=== PATIENT | female | born 1945 | race Caucasian/White ===

== ENCOUNTER → 2017-04-05 | Outpatient (CLI) | payer OTHER ==
[~2017-04-05] MED LIST: ALEVE220 MG PO; CALCI-CHEW500 MG PO; CELEBREX 200 M200 MG PO; EVISTA; HYDROCODONE-AP1 EAC6 PO; IBUPROFEN200 M1 PO; XANAX 0.5 MG0.5 M1 PO
== END ==
LOC: RAD 05:07
DX: Z12.31 Encounter for screening mammogram for malignant neoplasm of breast (principal)

== ENCOUNTER → 2017-08-04 | Outpatient (CLI) | payer OTHER | LOC: RAD 11:03 | DX: M79.672 Pain in left foot (principal) ==

== ENCOUNTER → 2018-08-17 | Outpatient (CLI) | payer OTHER, BC ==
[~2018-08-17] VITALS: Ht 167.6 cm; Wt 63.5 kg
[~2018-08-17] MED LIST changes: +CELEXA40 MG PO; +XANAX 0.5 MG0.5 MG PO
--- NOTE | ~2018-08-17 | HPC ---
[facility] [place] [address] PAIN MANAGEMENT CONSULTATION Name: MIKE LEON [id number] Admission: 08/17/18 Attend Phys: Sarah Beth Lang MD Discharge: Date of : 47 Report #: [id number] THIS REPORT FOR: //name// CC: Norma Linares MD DATE OF SERVICE: 08/17/2018 FOLLOWUP COMPLAINT: Pain in the low back that goes down into both legs. FOLLOWUP HISTORY: The patient is a 73-year-old female, who has been experiencing pain and discomfort, which has been radiating down into both legs, involves the right side, which is most problematic. She has a history of lumbar radiculopathy. She has undergone epidural steroid injections in the past. She is experiencing pain now in the right leg in the L4-L5 distribution, where pain radiates down the right side of her leg to the anterior portion of her calf and down into her foot. She rates her pain as an 8/10. This is quite problematic. The pain has been worsening over the last 2 years. This pain affects walking, standing, and activities of daily living. She has not had surgery on her back. The patient states that she has talked to other anesthesiologist in the past. They have talked to her about other modes of treatment such as radiofrequency, lesioning of her low back area. She is not sure whether or not that would be a reasonable procedure at this juncture. She has came to the pain clinic with the thought of undergoing an epidural steroid injection. She has brought her MRI with her of her back. PAST MEDICAL HISTORY: The patient has joint disease/arthritis. PAST SURGICAL HISTORY: None. MEDICATIONS: The patient is on hydrocodone 5/325 one p.o. q.4-6 hours p.r.n., ibuprofen 200 mg p.r.n., calcium 500 mg, and Evista 60 mg daily. ALLERGIES: The patient has no known drug allergies. SOCIAL HISTORY: The patient is an news production assistant executive. REVIEW OF SYSTEMS: Generally in good health. She has eye disease/injury, wears glasses. PAIN CLINIC ASSESSMENT: 1. History of osteoarthritis. The patient is not being treated for osteoarthritis. 2. Rheumatoid arthritis. The patient is not being treated for rheumatoid arthritis. [place] [id number] PAIN MANAGEMENT CONSULTATION Name: MIKE LEON Room #: REG [facility]#: [id number] Admission: 08/17/18 Attend Phys: Sarah Beth Lang MD Discharge: Date of : 47 Report #: [id number] 3. Pain intensity is 9/10. 4. Fall risk. The patient has not fallen in the last 3 months. 5. Blood thinner. The patient is not on a blood thinning medication. 6. Hypertension. The patient has not been treated for hypertension. 7. Opioid therapy greater than 6 weeks. The patient does not have any problem with opioid medications. 8. Risk assessment tool, low risk with opioids, 0/3. 9. Functional assessment tool, 39/70. 10. Recreational drug use: The patient denies. 11. Tobacco. The patient has never smoked. 12. Alcohol. The patient drinks alcoholic beverages on occasion. PHYSICAL EXAMINATION: GENERAL: The patient is a well-developed and well-nourished white female. She appears her stated age. She is alert and oriented x 3. Affect is appropriate. Speech is fluent. Height is 5 feet 6 inches, weight is 138 pounds, and BMI is 22.3. VITAL SIGNS: Blood pressure is 148/61, pulse is 67, respiratory rate is 14, and saturation was 100%. HEENT: Normocephalic, atraumatic. Extraocular eye muscles intact. Sclerae nonicteric. Mucous membranes are moist. NECK: Without adenopathy or JVD. LUNGS: Clear to auscultation. HEART: Regular rate. S1, S2. MUSCULOSKELETAL: Upper extremity muscle strength is judged to be 5/5 for the major muscle groups. The patient without significant scoliosis, kyphosis, or lordosis. The patient has pain and discomfort in lower portion of her back with pain radiating down into the right L5-S1 dermatomal distribution. She has some discomfort on the left side as well. LABORATORY DATA: MRI of the lumbar spine dated 05/17/2018 reveals: 1. L2-L3: Disk desiccation and diffuse annular disk bulge. Moderate bilateral facet and ligamentum flavum hypertrophy. Moderate left, bilateral recess and neural foraminal narrowing. Mild right neural foraminal narrowing. 2. L3-L4: Disk desiccation and diffuse annular disk bulge. Mild bilateral facet and ligamentum flavum hypertrophy. No significant stenosis. 3. L4-L5: Mild disk desiccation and diffuse annular disk bulge. Advanced right and moderate left facet arthropathy. Congenitally short pedicles. Moderate spinal canal narrowing with an AP dimension of 10 mm or 7 mm. Moderate bilateral recess narrowing. Mild bilateral neural foraminal narrowing. 4. L5-S1: Minimal diffuse annular disk bulge. Mild bilateral facet arthropathy. Moderate right neural foramen narrowing. IMPRESSION: 1. Lumbar radiculopathy, L4-L5 distribution. 2. Generally in good health. [facility] [address] [place] [address] PAIN MANAGEMENT CONSULTATION Name: MIKE LEON Room #: REG [facility]#: [id number] Admission: 08/17/18 Attend Phys: Sarah Beth Lang MD Discharge: Date of : 47 Report #: [id number] RECOMMENDATIONS: We have discussed treatment options with the patient. Risks and benefits of an epidural steroid injection were discussed. The patient will return to the pain clinic in about 5 days. At that time, she will undergo an epidural steroid injection. She and her are planning on going on vacation. Risks and benefits of epidural steroid injection again have been reviewed and the patient elects to proceed. <ELECTRONICALLY SIGNED> By: Sarah Beth Lang MD 09/03/18 1124 [id number] [id number] Sarah Beth Lang MD /[facility]
[2018-08-17 13:49] VITALS: BP 142/64
== END ==
LOC: PAIN 09:09
DX: M54.5 Low back pain (principal); M79.604 Pain in right leg; M79.605 Pain in left leg; Z79.899 Other long term (current) drug therapy

== ENCOUNTER → 2018-08-22 | Outpatient (CLI) | payer OTHER, BC ==
[~2018-08-22] VITALS: Ht 167.6 cm; Wt 62.8 kg
--- NOTE | ~2018-08-22 | HPC ---
[facility] [place] [address] PAIN MANAGEMENT CONSULTATION Name: MIKE LEON Room #: REG [facility]#: [id number] Admission: 08/22/18 Attend Phys: Sarah Beth Lang MD Discharge: Date of : 47 Report #: [id number] THIS REPORT FOR: //name// CC: Norma Linares MD DATE OF SERVICE: 08/22/2018 PRIMARY CARE PHYSICIAN: Benito Linares MD and SINDY Leal CHIEF COMPLAINT: Back and right leg pain. HISTORY: The patient is a 73-year-old female who has been seen in the pain clinic because of pain and discomfort in the lower portion of her back. She is experiencing pain that radiates down in the L5/L4 distribution on the right side. She has undergone epidural steroid injections in the past and gleaned benefits from these. She returns today for an injection. She does work out on a regular basis. Does have some pain and discomfort in the low back area and down into the low back area, right side greater than the left. She notes some tightening and spasms in the area, particularly on the right. She has returned today for an epidural steroid injection. Epidural steroid injections in the past have gleaned and provided greater than 50% improvement. She would like to proceed with another injection today. ALLERGIES: No known drug allergies. MEDICATIONS: Xanax 0.5 mg daily, Celexa 40 mg, ibuprofen 200 mg, hydrocodone 5/325, calcium 500 mg, and Evista 60 mg. PAIN CLINIC ASSESSMENT/PQRS: 1. Osteoarthritis. The patient has not been treated for osteoarthritis or rheumatoid arthritis. 2. Height 5 feet 6 inches, weight 138 pounds, BMI 22.3. 3. Vital signs: Blood pressure 148/61, pulse 67, respiratory rate 14, room air saturation is 100%. 4. Pain intensity 9/10. 5. Fall risk. The patient has not fallen in the last 3 months. 6. Blood thinner. The patient is not on a blood thinning medication. 7. Hypertension. The patient is not being treated for hypertension, opioid therapy greater than 6 weeks. The patient is not on an opioid regimen greater than 6 weeks. 8. Risk assessment tool 0/3 low risk. 9. Functional assessment tool of 39/70. 10. Drug use. The patient denies use of recreational drugs. 11. Tobacco: The patient has never smoked. [address] [address] PAIN MANAGEMENT CONSULTATION Name: MIKE LEON Room #: REG [facility]#: [id number] Admission: 08/22/18 Attend Phys: Sarah Beth Lang MD Discharge: Date of : 47 Report #: [id number] 12. Alcohol: The patient occasionally drinks alcoholic beverages. PHYSICAL EXAMINATION: GENERAL: The patient is a well-developed, well-nourished white female. Appears her stated age. She is alert and oriented x 3. Affect is appropriate. Speech is fluent. HEENT: Normocephalic, atraumatic. Extraocular eye muscles intact. Sclerae nonicteric. Mucous membranes are moist. NECK: Without JVD or adenopathy. Good range of motion. Upper extremity muscle strength is judged to be 5/5 for the major muscle groups in the upper extremities with symmetry. LUNGS: Clear to auscultation. HEART: Regular rate. S1, S2. ABDOMEN: Nontender. Bowel sounds are present. EXTREMITIES: Lower extremity muscle strength is judged to be 5/5 for the major muscle groups in the lower extremity. The patient has a slight antalgic walk, does have pain and discomfort involving the right L4-L5 lumbar distribution. The patient was without significant scoliosis, kyphosis or lordosis. IMPRESSION: 1. Anxiety. 2. Low back pain with lumbar radiculopathy without myelopathy. RECOMMENDATIONS: We discussed treatment options with the patient and her . We had already discussed and reviewed her MRI. We will proceed with an epidural steroid injection at L4-L5. The patient has some narrowing in this area with a narrowing to 7 mm. Risks and benefits of the procedure were again reviewed. They include infection, increased muscle soreness, headache, bleeding, worsening of pain, no improvement in pain and the patient elects to proceed. PROCEDURE NOTE: The patient was placed in the prone position. Fluoroscopy was used to identify the L4/L5 area. This area had been sterilely prepped with Betadine. A 0.25% bupivacaine was infiltrated. Fluoroscopy using an anterior, posterior as well as a lateral approach was implemented. A 17-gauge Tuohy with loss of resistance technique using a right paraspinous approach was undertaken. A 17-gauge Tuohy with loss of resistance technique was used to gain access to the epidural space. There was no CSF, heme or paresthesia. A total of 80 mg Depo-Medrol, 40 mg triamcinolone and 2 mL of 0.25% bupivacaine was injected. The patient tolerated the procedure well. There were no complications. Her pain decreased from 9-0 at the time of discharge. She will follow up in the [address] [place] [address] PAIN MANAGEMENT CONSULTATION Name: MIKE LEON Room #: [facility]#: [id number] Admission: 08/22/18 Attend Phys: Sarah Beth Lang MD Discharge: Date of : 47 Report #: [id number] future as needed. We would like to thank you for letting us participate in her care. We hope she continues to improve. <ELECTRONICALLY SIGNED> By: Sarah Beth Lang MD 09/03/18 1124 1829 [id number] Sarah Beth Lang MD /[facility]
[2018-08-22 08:52] VITALS: BP 148/61
== END | disposition home or self-care (01) ==
LOC: PAIN 06:40
DX: M54.16 Radiculopathy, lumbar region (principal); G89.29 Other chronic pain; F41.9 Anxiety disorder, unspecified; Z79.891 Long term (current) use of opiate analgesic